=== PATIENT | female | born 1950 | race Caucasian/White ===

== ENCOUNTER 2019-11-19 10:14 | Outpatient (CLI) | payer MEDICARE, MEDICAID, SELFPAY ==
--- NOTE | 2019-11-19 10:00 | XRR_ITS ---
PROCEDURE INFORMATION: Exam: XR Abdomen, 1 View Exam date and time: 11/19/2019 10:54 AM Age: 69 years old Clinical indication: Condition or disease; Kidney or ureter condition; Calculus (stone) in kidney; Prior surgery; Surgery type: Cysto; Patient HX: Patient unable to lay on table; Additional info: Bilateral renal stones TECHNIQUE: Imaging protocol: XR of the abdomen. Views: Frontal supine view of the abdomen. 1 View. COMPARISON: CR XR KUB [id number] 11/13/2018 1:35 PM FINDINGS: Gastrointestinal tract: bowel gas pattern is nonspecific. Air filled large bowel including distal rectal gas. Moderate amount stool throughout the large bowel. Bones/joints: Unremarkable. Other findings: Calcifications of approximately 17 mm and 12 mm overlying the left renal outline. XR/XR KUB [id number] IMPRESSION: 1. Bowel gas pattern is nonspecific. Air filled large bowel including distal rectal gas. 2. Moderate to large amount stool throughout the large bowel.
== END 2019-11-19 10:15 | disposition home or self-care (01) ==
LOC: RAD 10:20
PROVIDERS: PCP Family Medicine; Visit Provider Urology
DX: N20.0 Calculus of kidney (principal); N20.1 Calculus of ureter
CPT/HCPCS: 74018; 80053; 81001; 87077; 87086; 87186

== ENCOUNTER 2019-12-05 07:43 | Outpatient (CLI) | payer MEDICARE, MEDICAID, SELFPAY ==
--- NOTE | 2019-12-05 08:00 | CT_ITS ---
WS: [id number] CT ABDOMEN AND PELVIS NONCONTRAST HISTORY: Stones TECHNIQUE: Imaging performed through the abdomen and pelvis. Coronal and sagittal reformats are submi tted. All CT scans at [facility] use at least one of these dose optimization techniques: automated exposure control; mA and/or kV adjustment per patient size (includes targeted exams where d ose is matched to clinical indication); or iterative reconstruction. DLP: 1459.83 mGy.cm COMPARISON: 06/18/2018 Lower thorax: Mild atelectasis and dependent changes at the lung bases. Normal size heart. Small hiat al hernia. Liver: Normal size liver. No mass or bile duct dilatation. Gallbladder: Normal gallbladder. Pancreas: Normal size and attenuation. Normal pancreatic duct. No pancreatitis or mass. Spleen: Normal. Adrenal glands: Normal. No mass. Right kidney: Normal size RIGHT kidney 10 cm. 2.1 cm cyst from the mid kidney. Nonobstructing 5 mm ca lcification in the lower pole. The ureter is not dilated. Left kidney: Moderate diffuse atrophy with the kidney measuring 7.9 cm in length. Kidney has signific antly decreased in size since the prior study with marked thinning of the cortex. 13 x 15 mm large de nse calcification in the renal pelvis extending into the proximal ureter causing the mild obstruction . This calcification was described on the prior study and does appear smaller in size. Additional non obstructing irregular shaped calcification in the lower pole with a maximum diameter of 15 mm. There is an additional dense relative calcifications in the proximal to mid LEFT ureter extending over rosa th of 4.2 cm. Aorta: Mild atherosclerosis abdominal aorta with no aneurysm. No free fluid, intraperitoneal air or significant lymphadenopathy. GI tract: Normal appendix. No GI tract obstruction and mild diverticulosis. Abdominal wall: Negative. No hernia. Pelvis: Normal size anteverted uterus. Endometrium is enlarged at 1.7 cm. Soft tissue masslike struct ure in the endometrium. Both ovaries are atrophic as expected. Urinary bladder is normal. Osseous structures: Increase in the lumbar lordosis. Mild RIGHT convex curvature. CT/CT kidney stone [id number] IMPRESSION: 1. Progressive atrophy and cortical thinning LEFT kidney since 06/18/2018. 2. Significant calcific burden in the LEFT kidney and LEFT ureter. Row of calc ifications in the proximal to mid LEFT ureter extends over length of 4.2 cm. Th ere is an acute additional large calcification at the LEFT UP junction measurin g 1.3 x 1.5 cm. 3. Nonobstructing lower pole calcification RIGHT kidney. 4. Thickened abnormal endometrium. Neoplasm or polyp should be considered. Rec ommend follow-up transvaginal pelvic ultrasound.
== END 2019-12-05 07:44 | disposition home or self-care (01) ==
LOC: CT 07:44
PROVIDERS: PCP Family Medicine; Visit Provider Urology
DX: N20.0 Calculus of kidney (principal); R93.89 Abnormal findings on diagnostic imaging of other specified body structures; N20.1 Calculus of ureter; N26.1 Atrophy of kidney (terminal)
CPT/HCPCS: 74176

== ENCOUNTER 2020-01-09 08:05 | Outpatient (CLI) | payer MEDICARE, MEDICAID, SELFPAY ==
--- NOTE | 2020-01-09 08:00 | XR_ITS ---
WS: [id number] Exam: XR KUB [id number] Date/Time of Exam: 01/09/2020 8:20 AM Reason For Exam: RENAL STONES Comparison 11/19/2019. Again noted are 2 large calcifications superimposing the left renal silhouette. These measure about 1 .7 cm and 1.2 cm at greatest diameter respectively. These may represent large renal stones. No calcif ications are seen in the region of the right kidney. No bowel obstruction or free air. Moderate amoun t of stool in the colon. Visualized organ margins are unremarkable in appearance. XR/XR KUB [id number] IMPRESSION: 1. 2 large calcification superimposes the left kidney probably representing lar ge renal calculi. There are additional smaller calcifications superimposing the left kidney also. 2. Moderate amount of stool in the colon. No acute abdominal finding.
== END 2020-01-09 08:06 | disposition home or self-care (01) ==
LOC: RAD 08:09
PROVIDERS: PCP Family Medicine; Visit Provider Urology
DX: N20.0 Calculus of kidney (principal)
CPT/HCPCS: 74018; 81003; 87077; 87086; 87184

== ENCOUNTER 2020-01-13 13:41 | Day surgery (SDC) | payer MEDICARE, MEDICAID, SELFPAY ==
[2020-01-10 12:06] VITALS: BMI 38.8
[2020-01-13] VITALS (7 sets, daily range): BP systolic 134–178; BP diastolic 73–89; PULSE 73–94; RESP 13–18; TEMP 36.3–37.3; O2SAT 93–98
--- NOTE | 2020-01-13 13:57 | XR_ITS ---
WS: [id number] XR KUB [id number] REASON FOR EXAM: Preop left ESWL FINDINGS: Bowel gas pattern is unremarkable. There is no free air or retroperitoneal air. There is an oblong density seen in the right flank which is felt to represent medication in the right colon. There is a complex calculus or calculi in the lower pole of the left kidney. There are 2 smaller chuy tional calculi more superiorly. There is a large complex lamellated calculus near the ureterovesical junction. There appear to be 2 calculi in the mid left ureter at the level of the iliac crest. These calculi do not appear to have changed position significantly. (Plain film correlated with CT scan of 12/05/2019.) XR/XR KUB [id number] IMPRESSION: Multiple left renal and ureteral calculi as above.
[2020-01-13] MEDS: sodium chloride 0.9% 1,000 ML 30 ML IV (14:53)
--- NOTE | 2020-01-13 15:00 | ANES.PREANE2 ---
Pre-Anesthetic Assessment Pre-Anesthetic Assessment: Height/Weight: Height 1.37 m Weight 73.028 kg Temp Pulse Resp BP Pulse Ox 99.1 F 81 18 134/84 98 01/13/20 14:23 01/13/20 14:23 01/13/20 14:23 01/13/20 14:23 01/13/20 14:23 Preop Diagnosis: Complex left ureteral and renal calculi Proposed Procedure: Operation Date: 01/13/20 15:40 Proposed Procedures p Laser Lithotripsy 36517 46030 88781 26338 N20.1(Not Applicable) - MD daniel Gregory Cystoscopy(Not Applicable) - Hector Diaz MD s Retrograde Pyelogram(Left) - MD daniel Gregory Ureteroscopy(Not Applicable) - MD daniel Gregory Ureteral Stent Placement(Not Applicable) - MD daniel Gregory ESWL(Not Applicable) - Hector Diaz MD Familial anesthetic complications: Trouble waking up d/t her michael Was Beta Gloria taken within 24 hours: N/A Last intake: Intake Last Liquid Date 01/12/20 Last Liquid Time 20:00 Last Solid Date 01/12/20 Last Solid Time 21:00 Social: Social History: No alcohol and No tobacco Exam: Pre-Anes Outpt Exam: alert, oriented x 3, clear to auscultation bilaterally and regular rate & rhythm Airway: Cervical ROM: WNL MP: 2 Dentition: Other (no teeth) Pulmonary: Pulmonary: Sleep apnea Comments: bronchitis Metabolic: Metabolic: Thyroid Anesthetic Plan: ASA status: 2 Anesthesia: General Risk of > 500 ml blood loss (7ml/kg in children): No Meds/Allergies Current Medications: Current Medications Generic Name Dose Route Start Last Admin Trade Name Freq PRN Reason Stop Dose Admin Sodium Chloride 1,000 mls @ 30 ml s/hr 01/13/20 14:00 01/13/20 14:53 Sodium Chloride 0.9% IV 01/14/20 13:59 30 mls/hr .Q24H CHUY Administration PFSH Anesthesia PFSH: Medical History (Updated 01/10/20 @ 12:14 by Jonna George) COVID-19 Positive test on 12/11/2019. Minimal symptoms. Recovered Left ureteral calculus Pyuria Renal calculus, bilateral Surgical History Hx of bilateral cataract extraction Hx of tonsillectomy Family History Father , AT AGE 59 CAD (coronary artery disease) Mother , AT AGE 70 Cancer Social History Smoking and tobacco status: former smoker Alcohol intake: current Alcohol intake frequency: holidays/special occasions only Adopted: No Caregiver/support person: No Lives independently: No Marital status: Current occupational status: retired Data Anesthesia Cardiac Studies: No Data to Display
--- NOTE | 2020-01-13 15:43 | P.HPUD_ITS ---
Surgery/Procedure H&P Update DATE OF PROCEDURE: January 13, 2020 DATE H&P PERFORMED: 12/05/19 H&P UPDATE INFORMATION: I have reviewed H&P completed within last 30 days, I have examined patient prior to procedure, No changes to prior documentation and H&P is in [facility] EMR on date indicated PREOP DIAGNOSIS: Complex left ureteral and renal calculi PLANNED PROCEDURE: Operation Date: 01/13/20 15:40 Proposed Procedures p Laser Lithotripsy 03186 79778 96174 20121 N20.1(Not Applicable) - Hector Diaz MD s Cystoscopy(Not Applicable) - MD daniel Gregory Retrograde Pyelogram(Left) - MD daniel Gregoyr Ureteroscopy(Not Applicable) - MD daniel Gregory Ureteral Stent Placement(Not Applicable) - MD daniel Gregory ESWL(Not Applicable) - Hector Diaz MD
--- NOTE | 2020-01-13 15:44 | PM.OP ---
Operative Report Date of procedure: January 13, 2020 Pre-op Diagnosis: Complex left ureteral and renal calculi Post-op diagnosis: same Procedure Done: 1. Cystoscopy, retrograde ureteropyelogram, ureteroscopy with laser lithotripsy of left mid and proximal ureteral stones, stent 2. Extracorporeal shockwave lithotripsy to multiple left renal calculi Implants: Left ureteral stent Surgeon: Joe Anesthesia: General Estimated blood loss: Minimal Urine output: Not measured Complications: None Findings: All the stones were in the expected positions. Ureteroscopy was utilized with laser lithotripsy to treat the multiple stones (5-7) in the ureter while concurrent ESWL to the renal calculi was being performed and then to some of the proximal fragments. Condition: stable Disposition: PACU Brief History: Jesica is a very pleasant 69-year-old white female with a history of recurrent urolithiasis who was recently identified as having multiple stones in her left collecting system including her proximal ureter, mid ureter large left UPJ and large left lower pole calculus. These were felt to likely be struvite in origin. She did have a pansensitive E. coli grown on recent culture. Being treated with Levaquin based on the culture results. Admitted for dual approach to the stones with ureteroscopy for the ureteral component and ESWL to the renal component given the large bulk and burden of the stone. Procedure: After routine preoperative evaluation examination and obtaining of informed consent she was taken to the operating suite on 01/13/2020 where general anesthesia was administered without difficulty after appropriate timeout was performed, SCDs confirmed to be functioning, preoperative antibiotics administered, beta-fred protocol confirmed. Prepped and draped in the usual sterile fashion in dorsolithotomy position paying careful attention to avoiding pressure points. 21 Ecuadorean cystoscope with 30 degree lens was introduced into urethral meatus and advanced into the bladder under videoscopy. No stones were seen in the bladder. 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 An 8 Ecuadorean cone-tip catheter was utilized for a LEFT retrograde ureteropyelogram. The contrast was low volume and low pressure to avoid filling of the renal pelvis with contrast obscuring the renal stones. The ureter appeared to be normal up into the point where the stones were encountered and filling defects identified as expected. Lower stones appeared to be located at around L4-L5 level. Flexible tip guidewire was then passed up the left ureter curling in the upper pole calyx. The distal ureter was then dilated with a 15 Ecuadorean 4 cm balloon and a second guidewire was passed for a working wire. The wire was secured to the drapes. An offset semirigid ureteroscope was then advanced up the left ureter next to the wire and the stones were encountered in the expected position. A 365 ?m thulium superpulse laser fiber was utilized and fragmentation was begun and worked up the column of stones with excellent fragmentation occurring. Concurrently with ureteroscopy ESWL was performed to the 2 renal stones. The stone initially treated was the UPJ stone which was brought to the focal point utilizing biplanar fluoroscopy. The stone was easily identifiable and focused upon. Shockwave therapy was initiated and intensity of 1 and advanced to an intensity of 4 initially at a rate of 60. A several minute pause was conducted after about 300 shocks. The initial stone treated responded significantly and after about 1000 shocks the focal point was moved to the lower pole on the left side. After about thousand shocks there it appeared to be dramatically changed. An additional 250 shocks were administered to the UPJ area and then the shockwave focus was shifted and worked down the ureter on the more proximal of the ureteral stones. Eventually no larger stone fragments could be identified in the ureter and the procedure was completed both ureteroscopically and then with extracorporeal shockwave lithotripsy. A 7 Ecuadorean by 24 cm double-pigtail stent was advanced over the guidewire through the cystoscope into appropriate position as confirmed via fluoroscopy and cystoscopy. The bladder was drained. She tolerated procedure well without complications and was awakened in the operating room and returned to the care of room in stable condition. It is anticipated that she will be discharged from outpatient surgery today. PLANS: 1. Follow-up in 2 weeks with KUB 2. Strain all voids and save any specimens 3. May require CT scan for full assessment of residual stones due to the very faint opacification.
[2020-01-13] MEDS: levofloxacin-dextrose 5 % 500 MG/100 ML PREMIX 100 MG IV (15:57)
[2020-01-13] MEDS: iohexol 300 mg/mL 50 mL Btl (OR ONLY) XX (16:54)
[2020-01-13 18:00] LABS: Blood Urea Nitrogen 25 mg/dL (8-23); Calcium 12.5 mg/dL (8.5-10.5); Carbon Dioxide 22 mmol/L (22-29); Chloride 104 mmol/L (98-107); Glucose 73 mg/dL (65-115); Osmolality Calculated 293 mOsm/kg (285-295); Sodium 140 mmol/L (136-145)
[2020-01-13 18:05] LABS: Anion Gap 17.8 (5-19); Potassium 3.8 mmol/L (3.5-5.1)
--- NOTE | 2020-01-13 18:45 | ANE.PACU2 ---
Inpatient post-anesthesia follow up: Airway intact: Yes Vital signs: Temperature 97.4 F Pulse Rate 82 Respiratory Rate 18 Blood Pressure 161/81 Pulse Oximetry 93 Oxygen Delivery Me thod Room Air Oxygen Flow Rate 8 Fraction of Inspir ed Oxygen Hydration adequate: Yes Nausea and vomiting: No Pain level: 3 Mental status: Baseline
--- NOTE | 2020-01-16 09:28 | P.HPUD_ITS ---
Surgery/Procedure H&P Update DATE OF PROCEDURE: January 16, 2020 DATE H&P PERFORMED: 12/05/19 H&P UPDATE INFORMATION: I have reviewed H&P completed within last 30 days, I have examined patient prior to procedure, No changes to prior documentation and H&P is in [facility] [place] on date indicated CHANGES TO PREVIOUS DOCUMENTATION: Delayed entry but all of above completed before the case on day of surgery PREOP DIAGNOSIS: Complex left ureteral and renal calculi PLANNED PROCEDURE: Operation Date: 01/13/20 15:40 Proposed Procedures p Laser Lithotripsy 57190 20247 24742 55344 N20.1(Not Applicable) - Hector Diaz MD s Cystoscopy(Not Applicable) - MD daniel Gregory Retrograde Pyelogram(Left) - MD daniel Gregory Ureteroscopy(Not Applicable) - MD daniel Gregory Ureteral Stent Placement(Not Applicable) - MD daniel Gregory ESWL(Not Applicable) - Hector Diaz MD
== END 2020-01-13 18:45 | disposition home or self-care (01) ==
PROVIDERS: PCP Family Medicine; Visit Provider Urology
PROC: (CPT 50590; principal; 2020-01-13 15:35)
PROC: 0TJB8ZZ Inspection of Bladder, Via Natural or Artificial Opening Endoscopic (ICD-10-PCS; CPT 52000; 2020-01-13 15:35)
PROC: (CPT 74420; 2020-01-13 15:35)
PROC: 0TJ98ZZ Inspection of Ureter, Via Natural or Artificial Opening Endoscopic (ICD-10-PCS; CPT 52351; 2020-01-13 15:35)
PROC: (CPT 50605; 2020-01-13 15:35)
PROC: (CPT 50590; 2020-01-13 15:35)
DX: N20.2 Calculus of kidney with calculus of ureter (principal); G47.30 Sleep apnea, unspecified; Z87.891 Personal history of nicotine dependence; Z79.82 Long term (current) use of aspirin
CPT/HCPCS: 50590; 52356; 12345; 36415; 74018; 80048; C1725; C2625; J1100; J1956; J2370; J2405; J2704; J3010; J3490; J7030

== ENCOUNTER 2020-01-31 07:55 | Outpatient (CLI) | payer MEDICARE, MEDICAID, SELFPAY ==
--- NOTE | 2020-01-31 08:30 | XR_ITS ---
WS: [id number] ABDOMEN: SUPINE FILM HISTORY: URETERAL STONE COMPARISON: 01/13/2020 Study is compromised by body habitus. Normal bowel gas pattern. Osteopenia. Right kidney: No renal or ureteral stone identified. Left kidney: LEFT ureteral stent appears to be in good position. 12 mm calcification adjacent to the distal stent was not present on the prior study. This calcification was in the proximal ureter and mi grated inferiorly. There is an additional calcification measuring 9 mm projecting over the lower pole LEFT kidney. XR/XR KUB [id number] IMPRESSION: 1. LEFT ureteral stent has been placed since the prior study. 2. Inferior migration of the 12 mm proximal LEFT ureteral calcification now ov er the distal ureter. 3. Additional 9 mm calcification lower pole LEFT kidney.
== END 2020-01-31 07:56 | disposition home or self-care (01) ==
PROVIDERS: PCP Family Medicine; Visit Provider Urology
DX: N20.1 Calculus of ureter (principal); Z96.0 Presence of urogenital implants; N20.0 Calculus of kidney
CPT/HCPCS: 74018; 81003

== ENCOUNTER 2020-02-04 08:33 | Outpatient (CLI) | payer MEDICARE, MEDICAID, SELFPAY ==
--- NOTE | 2020-02-04 08:45 | XR_ITS ---
WS: [id number] KUB, 02/04/2020 Clinical Data: URETERAL STONE Comparison: KUB, 01/31/2020 Findings: The left ureteral stent remains in good position. There is a 0.9 cm calcification overlying the infer ior pole of the left kidney and other smaller calcifications which have not changed. The 1.25 cm calc ification in the distal left ureter is no longer present. There is a calcification to the right of the L4-L5 disc interspace measuring 1.75 cm and it may be in the colon. There is a large amount of fecal material throughout the colon obscuring detail over the right kidney. XR/XR KUB [id number] Impression: 1. No change in left ureteral stent and calcifications overlying the inferior p ole of left kidney. 2. Probable distal left ureteral calculus no longer present.
== END 2020-02-04 08:34 | disposition home or self-care (01) ==
LOC: RAD 08:36
PROVIDERS: PCP Family Medicine; Visit Provider Urology
DX: N20.1 Calculus of ureter (principal); Z96.0 Presence of urogenital implants; N20.0 Calculus of kidney
CPT/HCPCS: 74018; 81003

== ENCOUNTER 2020-02-10 13:37 | Day surgery (SDC) | payer MEDICARE, MEDICAID, SELFPAY ==
[2020-02-07 13:28] VITALS: BMI 38.8
[2020-02-10] VITALS (8 sets, daily range): BP systolic 118–153; BP diastolic 68–97; PULSE 82–101; RESP 14–20; TEMP 36.3–36.9; O2SAT 93–100
--- NOTE | 2020-02-10 13:40 | XRR_ITS ---
PROCEDURE INFORMATION: Exam: XR Abdomen, 1 View Exam date and time: 02/10/2020 2:23 PM Age: 69 years old Clinical indication: Screening exam; Other: Preop left eswl TECHNIQUE: Imaging protocol: XR of the abdomen. Views: Frontal supine view of the abdomen. 1 View. COMPARISON: TX XR KUB [id number] 02/04/2020 8:49 AM FINDINGS: Tubes, catheters and devices: A ureteral stent is in place on the left side in good positions. Gastrointestinal tract: Normal. No bowel dilation. Organs: A caliceal stone is present in the lower pole collecting system of the left kidney measuring 9.7 mm. This finding was seen on prior examination and appears similar Bones/joints: There is lumbar spine osteopenia and osteoarthritis. XR/XR KUB [id number] IMPRESSION: 1. No acute GI abnormality. 2. Ureteral stent in the left outflow tract in good position. 3. Caliceal stone lower pole collecting system left kidney. 4. Lumbar spine osteopenia and osteoarthritis
[2020-02-10] MEDS: sodium chloride 0.9% 1,000 ML 30 ML IV (15:00)
--- NOTE | 2020-02-10 15:08 | ANES.PREANE2 ---
Pre-Anesthetic Assessment Pre-Anesthetic Assessment: Height/Weight: Height 1.37 m Weight 73.028 kg Temp Pulse Resp BP Pulse Ox 98 F 82 18 118/68 98 02/10/20 14:36 02/10/20 14:36 02/10/20 14:36 02/10/20 14:36 02/10/20 14:36 Preop Diagnosis: Residual left lower pole stone Proposed Procedure: Operation Date: 02/10/20 15:35 Proposed Procedures p left Ureteral Stent Exchange 35602 14042 n20.1(Left) - Hector Diaz MD s ESWL(Not Applicable) - Hector Diaz MD Was Beta Gloria taken within 24 hours: N/A Last intake: Intake Last Liquid Date 02/10/20 Last Liquid Time 10:00 Last Solid Date 02/09/20 Last Solid Time 18:00 Social: Social History: No alcohol and No tobacco Exam: Pre-Anes Outpt Exam: alert, oriented x 3, clear to auscultation bilaterally and regular rate & rhythm Airway: Submandibular: WNL Cervical ROM: WNL MP: 2 Dentition: Full Pulmonary: Pulmonary: Sleep apnea CV/HEM: CV/HEM: HTN : Comments: Stones Hepatic: Hepatic: None reported GI: GI: GERD Metabolic: Metabolic: Thyroid Musc/skel: Musc/skel: None reported Neuropsych: Neuropsych: None reported Anesthetic Plan: ASA status: 3 Anesthesia: General Risk of > 500 ml blood loss (7ml/kg in children): No Meds/Allergies Current Medications: Current Medications Generic Name Dose Route Start Last Admin Trade Name Freq PRN Reason Stop Dose Admin Sodium Chloride 1,000 mls @ 30 ml s/hr 02/10/20 13:45 02/10/20 15:00 Sodium Chloride 0.9% IV 02/11/20 13:44 30 mls/hr .Q24H CHUY Administration PFSH Anesthesia PFSH: Medical History (Updated 02/04/20 @ 17:01 by Hector Diaz MD) COVID-19 Positive test on 12/11/2019. Minimal symptoms. Recovered Left ureteral calculus Pyuria Renal calculus, bilateral Surgical History Hx of bilateral cataract extraction Hx of tonsillectomy Family History Father , AT AGE 59 CAD (coronary artery disease) Mother , AT AGE 70 Cancer Social History Smoking and tobacco status: former smoker Alcohol intake: current Alcohol intake frequency: holidays/special occasions only Adopted: No Caregiver/support person: No Lives independently: No Marital status: Current occupational status: retired Data Anesthesia Cardiac Studies: No Data to Display
[2020-02-10] MEDS: levofloxacin-dextrose 5 % 500 MG/100 ML PREMIX 100 MG IV (16:02)
--- NOTE | 2020-02-10 16:25 | W.PM.OPSUD ---
Surgery/Procedure H&P Update DATE OF PROCEDURE: February 10, 2020 DATE H&P PERFORMED: 02/04/20 H&P UPDATE INFORMATION: I have reviewed H&P completed within last 30 days, I have examined patient prior to procedure, No changes to prior documentation and H&P is in [facility] EMR on date indicated PREOP DIAGNOSIS: Residual left lower pole stone PLANNED PROCEDURE: Operation Date: 02/10/20 15:35 Proposed Procedures p left Ureteral Stent Exchange [id number] 77463 n20.1(Left) - Hector Diaz MD s ESWL(Not Applicable) - Hector Diaz MD
--- NOTE | 2020-02-10 16:25 | PM.OP ---
Operative Report Date of procedure: February 10, 2020 Pre-op Diagnosis: Residual left lower pole stone Post-op diagnosis: same Procedure Done: 1. Cystoscopy with left ureteral stent exchange 2. Left renal (lower pole) extracorporeal shockwave lithotripsy Pathology: none sent Surgeon: Joe Case Management Social Worker: Pan: Lithotripsy construction technician Anesthesia: General Estimated blood loss: None Urine output: Not measured Complications: None Findings: Stent removed without difficulty. 7 x 24 cm double-pigtail stent passed without difficulty into appropriate position as confirmed via fluoroscopy and cystoscopy. 2500 shocks administered to the left lower pole stone with good change Condition: stable Disposition: PACU Brief History: Jesica is a very pleasant 69-year-old white female with a complex history of multiple stones involving her left proximal to mid ureter as well as 2 large stones in her left kidney. She has today to undergone ESWL to one of the larger stones with complete eradication, combination of ESWL and laser lithotripsy to a series of stones in the proximal to mid left ureter with resolution, and partial fragmentation of left lower pole calculus. She is back now to try and clear the residual left lower pole calculus. . Procedure: After routine preoperative evaluation examination and obtaining of informed consent she was taken to the operating suite on 02/10/2020 where general anesthesia was administered without difficulty after appropriate timeout was performed, SCDs confirmed to be functioning, preoperative antibiotics administered, beta-fred protocol confirmed. Prepped and draped in usual sterile fashion in dorsolithotomy position paying careful attention to avoiding pressure points. 21 [place] cystoscope with 30 degree lens was introduced into the urethral meatus and advanced into the bladder under videoscopy. Stent was easily identified. Flexible tip guidewire was advanced up the left ureter next to the stent curling in the upper pole calyx. Stent was then removed with grasping forceps with a easy uncurling of the proximal aspect. Cystoscope was then backloaded over the guidewire and a 7 [place] by 24 cm double-pigtail stent was advanced over the guidewire through the cystoscope into appropriate position as confirmed via fluoroscopy and cystoscopy. She was then repositioned in supine position paying careful attention to avoiding pressure points. With the shock head positioned anteriorly the stone was easily identified and placed at the focal point. Shockwave therapy was initiated rate of 70 and intensity of 1 and advanced to a rate of 90 after change was identified. After about 300 shocks a several minute pause was conducted and then the intensity was increased slowly to 4. Good change was noted. She tolerated procedure well without complications and was awakened in the operating room and returned to the recovery in stable condition. Plans will be to see her back in about a week with a KUB and possibly remove the stent if her fragments are small enough to easily pass. .
--- NOTE | 2020-02-10 18:50 | ANE.PACU2 ---
Inpatient post-anesthesia follow up: Airway intact: Yes Vital signs: Temperature 98 F Pulse Rate 83 Respiratory Rate 18 Blood Pressure 148/95 Pulse Oximetry 96 Oxygen Delivery Me thod Room Air Oxygen Flow Rate 2 Fraction of Inspir ed Oxygen Hydration adequate: Yes Nausea and vomiting: No Pain level: 1 Mental status: Baseline
== END 2020-02-10 18:30 | disposition home or self-care (01) ==
PROVIDERS: PCP Family Medicine; Visit Provider Urology
PROC: (CPT 50590; principal; 2020-02-10 15:35)
PROC: (CPT 50590; 2020-02-10 15:35)
DX: N20.1 Calculus of ureter (principal); G47.30 Sleep apnea, unspecified; I10 Essential (primary) hypertension; K21.9 Gastro-esophageal reflux disease without esophagitis; Z87.891 Personal history of nicotine dependence
CPT/HCPCS: 50590; 52332; 12345; 74018; C2625; J1100; J1956; J2250; J2405; J2704; J2710; J3010; J3490; J7030

== ENCOUNTER 2020-02-19 07:11 | Outpatient (CLI) | payer MEDICARE, MEDICAID, SELFPAY ==
--- NOTE | 2020-02-19 07:00 | XR_ITS ---
WS: [id number] Exam: XR KUB [id number] Date/Time of Exam: 02/19/2020 7:32 AM Reason For Exam: BILATERAL RENAL STONES Comparison 02/10/2020. Left ureteral stent catheter in place appearing to be in good position. There are calcifications supe rimposing the left renal silhouette apparently representing known renal stones. No bowel obstruction or free air. Visualized organ margins are otherwise intact. XR/XR KUB [id number] IMPRESSION: 1. Left-sided ureteral stent remaining in good position. 2. Calcifications superimposing left kidney apparently representing renal calcu li. 3. No acute finding.
== END 2020-02-19 07:12 | disposition home or self-care (01) ==
LOC: RAD 07:15
PROVIDERS: PCP Family Medicine; Visit Provider Urology
DX: N20.0 Calculus of kidney (principal)
CPT/HCPCS: 74018

== ENCOUNTER 2020-03-03 08:32 | Outpatient (CLI) | payer MEDICARE, MEDICAID, SELFPAY ==
--- NOTE | 2020-03-03 10:00 | XRR_ITS ---
PROCEDURE INFORMATION: Exam: XR Abdomen, 1 View Exam date and time: 03/03/2020 8:50 AM Age: 69 years old Clinical indication: Condition or disease; Kidney or ureter condition; Calculus (stone) in kidney; Additional info: Renal stones TECHNIQUE: Imaging protocol: XR of the abdomen. Views: Frontal supine view of the abdomen. 1 View. COMPARISON: CR XR KUB [id number] 02/19/2020 7:28 AM FINDINGS: Tubes, catheters and devices: A left ureteral stent projects in satisfactory position. Gastrointestinal tract: Normal. No bowel dilation. Organs: Calcifications project on both kidneys. There are not changed since previous examination. No definite calculi are seen along the course of the left ureteral stent. Bones/joints: Degenerative disease in the spine.. XR/XR KUB [id number] IMPRESSION: 1. Satisfactory left ureteral stent position. 2. Bilateral nephrolithiasis unchanged.
== END 2020-03-03 08:33 | disposition home or self-care (01) ==
LOC: RAD 08:40
PROVIDERS: PCP Family Medicine; Visit Provider Urology
DX: N20.0 Calculus of kidney (principal); Z96.0 Presence of urogenital implants
CPT/HCPCS: 74018; 81003; 87635

== ENCOUNTER 2020-03-09 10:19 | Day surgery (SDC) | payer MEDICARE, MEDICAID, SELFPAY ==
[2020-03-06 12:52] VITALS: BMI 37.5
[2020-03-09] VITALS (8 sets, daily range): BP systolic 111–144; BP diastolic 73–95; PULSE 75–120; RESP 14–20; TEMP 36.6–37.2; O2SAT 92–98
--- NOTE | 2020-03-09 10:31 | XRR_ITS ---
PROCEDURE INFORMATION: Exam: XR Abdomen, 1 View Exam date and time: 03/09/2020 10:35 AM Age: 69 years old Clinical indication: Screening exam; Other: Preop left eswl TECHNIQUE: Imaging protocol: XR of the abdomen. Views: Frontal supine view of the abdomen. 1 View. COMPARISON: CR XR KUB [id number] 03/03/2020 8:46 AM FINDINGS: Tubes, catheters and devices: Stable urolithiasis and left double J catheter. Gastrointestinal tract: Colonic dilatation and prominent stool. Vasculature: Vascular calciifcation. Bones/joints: Degenerative change. XR/XR KUB [id number] IMPRESSION: Stable urolithiasis and left double J catheter.
--- NOTE | 2020-03-09 11:36 | ANES.PREANE2 ---
Pre-Anesthetic Assessment Pre-Anesthetic Assessment: Height/Weight: Height 1.37 m Weight 70.76 kg Preop Diagnosis: Residual left lower pole stone Proposed Procedure: Operation Date: 03/09/20 12:00 Proposed Procedures p ESWL 60184 N20.0(Left) - Hector Diaz MD Familial anesthetic complications: None Was Beta Gloria taken within 24 hours: N/A Last intake: NPO > 8 hrs Social: Social History: No alcohol and No tobacco Comment: former smoker Exam: Pre-Anes Outpt Exam: alert, oriented x 3, clear to auscultation bilaterally and regular rate & rhythm Airway: Cervical ROM: WNL MP: 2 Dentition: Other (edentulous) Pulmonary: Pulmonary: Sleep apnea Comments: covid positive in oct CV/HEM: CV/HEM: HTN GI: GI: GERD Anesthetic Plan: ASA status: 3 Anesthesia: General Risk of > 500 ml blood loss (7ml/kg in children): No PFSH Anesthesia PFSH: Medical History COVID-19 Positive test on 12/11/2019. Minimal symptoms. Recovered Hypertension Left ureteral calculus Pyuria Renal calculus, bilateral S/P extracorporeal shock wave therapy Sleep apnea Surgical History History of ureter stent Hx of bilateral cataract extraction Hx of tonsillectomy Family History Father , AT AGE 59 CAD (coronary artery disease) Mother , AT AGE 70 Cancer Social History Smoking and tobacco status: former smoker Alcohol intake: current Alcohol intake frequency: holidays/special occasions only Adopted: No Caregiver/support person: No Lives independently: No Marital status: Current occupational status: retired Data Anesthesia Cardiac Studies: No Data to Display
[2020-03-09] MEDS: sodium chloride 0.9% 1,000 ML 30 ML IV (11:40)
--- NOTE | 2020-03-09 12:27 | W.PM.OPSUD ---
Surgery/Procedure H&P Update DATE OF PROCEDURE: March 09, 2020 DATE H&P PERFORMED: 03/03/20 H&P UPDATE INFORMATION: I have reviewed H&P completed within last 30 days, I have examined patient prior to procedure, No changes to prior documentation and H&P is in [facility] on date indicated PREOP DIAGNOSIS: Residual left lower pole stone PLANNED PROCEDURE: Operation Date: 03/09/20 12:00 Proposed Procedures p ESWL 18982 N20.0(Left) - Hector Diaz MD
--- NOTE | 2020-03-09 12:28 | PM.OP ---
Operative Report Date of procedure: March 09, 2020 Pre-op Diagnosis: Residual left lower pole stone fragment Post-op diagnosis: same Procedure Done: Extracorporeal shockwave lithotripsy left lower pole renal fragment Pathology: none sent Surgeon: Joe Bobbin Sorter: Lithotripsy Hvac Mechanic: Dionisio Perla Anesthesia: General Estimated blood loss: None Urine output: Not measured Complications: None Findings: Left lower pole fragment easily identified and treated. 2500 shocks administered with good change. Condition: stable Disposition: PACU Brief History: Jesica is a very pleasant 69-year-old white female who was discovered to have very large stone burden in the left proximal ureter extending down to the mid ureter, left UPJ (large stone), and left lower pole partial staghorn She has previously undergone ureteroscopic laser lithotripsy to multiple stones in the ureter, ESWL to the large UPJ stone, and treatment to the left lower pole stone. She still has one fragment remaining from the staghorn left lower pole calculus and is back now for hopefully completion ESWL. Procedure: After routine preoperative evaluation examination and obtaining of informed consent she was taken to the operating suite on 03/09/2020 where general anesthesia was administered without difficulty after appropriate timeout was performed, SCDs confirmed to be functioning, preoperative antibiotics administered, beta-fred protocol confirmed. Positioned on the Dornier unit in supine position paying careful attention to avoiding pressure points. The left lower pole stone was manipulated into the focal point with bed position changes. Shockwave was initiated intensity of 1 and advanced an intensity of 4. Rate was initiated at 70 and later switched to 90 after further fragmentation was noted. A several minute pause was conducted after approximately 300 shocks. A total of 2500 shocks were administered with good change. The stent was left indwelling at the completion of the procedure. She tolerated the procedure well without complications and was awakened in the operating room and returned to the recovery room in stable condition. PLANS: 1. Follow-up next week with KUB and likely cystoscopy with stent removal. .
--- NOTE | 2020-03-09 15:43 | ANE.PACU2 ---
Inpatient post-anesthesia follow up: Airway intact: Yes Vital signs: Temperature 98.7 F Pulse Rate 75 Respiratory Rate 18 Blood Pressure 136/80 Pulse Oximetry 92 Oxygen Delivery Me thod Nasal Cannula Oxygen Flow Rate 2 Fraction of Inspir ed Oxygen Hydration adequate: Yes Nausea and vomiting: No Pain level: 2 Mental status: Baseline
== END 2020-03-09 14:55 | disposition home or self-care (01) ==
PROVIDERS: PCP Family Medicine; Visit Provider Urology
PROC: (CPT 50590; principal; 2020-03-09 12:00)
DX: N20.0 Calculus of kidney (principal); G47.30 Sleep apnea, unspecified; I10 Essential (primary) hypertension; K21.9 Gastro-esophageal reflux disease without esophagitis; Z87.891 Personal history of nicotine dependence; Z86.16 Personal history of COVID-19
CPT/HCPCS: 50590; 12345; 74018; 96374; J0690; J2370; J2405; J3010; J3490; J7030

== ENCOUNTER 2020-03-16 07:42 | Outpatient (CLI) | payer MEDICARE, MEDICAID, SELFPAY ==
--- NOTE | 2020-03-16 08:15 | XR_ITS ---
WS: [id number] Exam: XR KUB [id number] Date/Time of Exam: 03/16/2020 7:55 AM Reason For Exam: RENAL STONES Comparison 03/09/2020. A left ureteral stent is in place appearing to be in appropriate position. There are calcifications s uperimposing the left kidney which are most likely renal calculi. No bowel obstruction or free air. V isualized organ margins are intact. DJD and dextroscoliosis of the lower thoracic and lumbar spine. XR/XR KUB [id number] IMPRESSION: 1. Left-sided ureteral stent in place appearing to be in appropriate position. 2. Several calcifications superimposing the left renal silhouette which may rep resent renal calculi.
== END 2020-03-16 07:43 | disposition home or self-care (01) ==
LOC: RAD 07:46
PROVIDERS: PCP Family Medicine; Visit Provider Urology
DX: N20.0 Calculus of kidney (principal); Z96.0 Presence of urogenital implants
CPT/HCPCS: 74018; 81003

== ENCOUNTER 2020-06-16 07:11 | Outpatient (CLI) | payer MEDICARE, MEDICAID, SELFPAY ==
--- NOTE | 2020-06-16 07:15 | XR_ITS ---
WS: [id number] Exam: XR KUB [id number] Date/Time of Exam: 06/16/2020 7:15 AM Reason For Exam: N20.0 - Calculus of kidney Comparison 03/16/2020. Left-sided ureteral stent is been removed since previous study. There are calcifications superimposin g the mid and lower pole the left kidney and lower pole the right kidney suggesting renal stones. No bowel obstruction or free air. Moderate amount retained stool in the colon. Organ margins are obscure d. Bony structures are intact. XR/XR KUB [id number] IMPRESSION: 1. Calcifications superimposing both kidneys most likely representing renal sto jael. 2. No acute abdominal process. Constipation.
== END 2020-06-16 07:12 | disposition home or self-care (01) ==
LOC: RAD 07:13
PROVIDERS: PCP Family Medicine; Visit Provider Urology
DX: N20.0 Calculus of kidney (principal); K59.00 Constipation, unspecified
CPT/HCPCS: 74018; 81003

== ENCOUNTER 2020-12-15 13:50 | Outpatient (CLI) | payer MEDICARE, MEDICAID, SELFPAY ==
--- NOTE | 2020-12-15 13:45 | XR_ITS ---
WS: [id number] Exam: XR KUB [id number] Date/Time of Exam: 12/15/2020 2:02 PM Reason For Exam: RENAL CALCULUS Comparison 06/16/2020. There are calcifications superimposing both renal silhouettes that may represent renal calculi. No si gn of bowel obstruction or free air. No sign of organ enlargement. Nonspecific bilateral pelvic calci fications. Lower thoracic scoliosis noted. XR/XR KUB [id number] IMPRESSION: 1. Calcifications superimposing both kidneys and may represent renal stones. 2. No acute abdominal process.
== END 2020-12-15 13:51 | disposition home or self-care (01) ==
LOC: RAD 13:53
PROVIDERS: PCP Family Medicine; Visit Provider Urology
DX: N20.0 Calculus of kidney (principal)
CPT/HCPCS: 74018; 81003

== ENCOUNTER → 2023-08-07 13:00 | Outpatient (BNVA) | payer MEDICARE, MEDICAID, SELFPAY | PROVIDERS: PCP Family Medicine; Visit Provider Nurse Practitioner Family | DX: D48.5 Neoplasm of uncertain behavior of skin (principal); L57.0 Actinic keratosis; L56.5 Disseminated superficial actinic porokeratosis (DSAP); L82.1 Other seborrheic keratosis; D22.39 Melanocytic nevi of other parts of face | CPT/HCPCS: 11102; 17000; 99203 ==

== ENCOUNTER → 2024-03-22 09:50 | Outpatient (BNVA) | payer MEDICARE, MEDICAID, SELFPAY | PROVIDERS: PCP Family Medicine; Visit Provider Nurse Practitioner Family | DX: L30.0 Nummular dermatitis (principal); L82.1 Other seborrheic keratosis; D22.5 Melanocytic nevi of trunk; D22.39 Melanocytic nevi of other parts of face; L57.8 Other skin changes due to chronic exposure to nonionizing radiation | CPT/HCPCS: 99213 ==